=== PATIENT | female | born 1980 | race Caucasian/White ===

== ENCOUNTER 2018-03-20 22:56 | Inpatient (IN) | payer OTHER ==
[2018-03-20] MEDS ORDERED: Sodium Chloride 0.9% 10 ML Syringe FLUSH PRN (23:44)
[2018-03-21] MEDS ORDERED: Sodium Chloride 0.9% 10 ML Syringe FLUSH PRN (01:38)
[2018-03-21] MEDS ORDERED: Ondansetron 4 MG Tab.DIS PO PRN (01:38)
[2018-03-21] MEDS ORDERED: Lanolin 100% Cream 40 GM Tube TOP PRN (01:38)
[2018-03-21] MEDS ORDERED: fentaNYL 100 MCG/2 ML SDV IVPUSH PRN (01:38)
[2018-03-21] MEDS ORDERED: Acetaminophen 325 MG Tab PO PRN (01:38)
[2018-03-21] MEDS ORDERED: ePHEDrine 50 MG/ML SDV ONE (01:39)
[2018-03-21] MEDS ORDERED: Oxytocin 10 Units/1 ML SDV ONE (01:42)
[2018-03-21] MEDS ORDERED: Naloxone 0.4 MG/ML SDV ONE (01:43)
[2018-03-21] MEDS ORDERED: Lidocaine 1% 50 ML MDV ONE (01:43)
[2018-03-21] MEDS ORDERED: Acetaminophen 325 MG Tab, 50 Tab Bulk Bottle PO PRN (01:49)
[2018-03-21] MEDS ORDERED: Ibuprofen 200 MG Tab, 24 Tab Bulk Bottle PO PRN (01:49)
--- NOTE | 2018-03-21 01:54 | PCM.LDHP ---
L&D History of Present Illness - General Date of Service: 03/21/18 (Labor) Admit Problem/Dx: Patient Status Order with Admit Dx/Problem 03/21/18 01:39 Patient Status [ADT] Routine Patient Status [ADT] Routine Admission Diagnosis/Problem Admission Diagnosis/Problem Delivery procedure Source of Information: Patient History Limitations: Reports: No Limitations - History of Present Illness Introduction:: This 38 year old who is 39 6/7 presented with contractions and SROM at home abour 2230 this evening. Clear fluid. She is rocio regularly and contractions are becoming stronger. RN CE /posterior. Labs: GBS neg Rubella immune HIV neg ABO AB pos Timing/Duration: Reports: minutes: (2-3) Location, : Reports: Abdomen, Lower back Quality: Reports: Pressure Severity: Moderate Improves with: Reports: Movement Worsens with: Reports: None Associated Symptoms: Reports: vaginal fluid - Related Data Allergies/Adverse Reactions: Allergies Allergy/AdvReac Type Severity Reaction Status Date / Time No Known Allergies Allergy Verified 03/20/18 23:02 Home Medications: Home Meds Vits #93/Iron Fum/FA [ Formula Tablet] 1 tab PO DAILY 03/20/18 [History] Past Medical History - Past Health History Medical/Surgical History: Denies 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 Para: 1 LMP (Approximate): ([place] 03/22/18) Social & Family History - Tobacco Use Smoking Status *Q: Former Smoker Used Tobacco, but Quit: Yes Month/Year Tobacco Last Used: 2010 Second Hand Smoke Exposure: No - Caffeine Use Caffeine Use: Reports: None - Alcohol Use Days Per Week of Alcohol Use: 1 Number of Drinks Per Day: 1 Total Drinks Per Week: 1 - Recreational Drug Use Recreational Drug Use: No H&P Review of Systems - Review of Systems: Review Of Systems: See Below General: Reports: No Symptoms HEENT: Reports: No Symptoms Pulmonary: Reports: No Symptoms Cardiovascular: Reports: No Symptoms Gastrointestinal: Reports: No Symptoms Genitourinary: Reports: No Symptoms Musculoskeletal: Reports: No Symptoms Skin: Reports: No Symptoms Psychiatric: Reports: No Symptoms Neurological: Reports: No Symptoms Hematologic/Lymphatic: Reports: No Symptoms Immunologic: Reports: No Symptoms L&D Exam - Exam Exam: See Below - Vital Signs Vital Signs: Last Vital Signs Temp 97.3 F 03/21/18 01:00 Pulse 98 03/21/18 01:00 Resp 18 03/21/18 01:00 BP 115/80 03/21/18 01:00 Pulse Ox 99 03/21/18 01:00 Weight: 152 lb - OB Specific Contraction Duration (sec): 50-90 Contraction Frequency (min): 1-3 Contraction Intensity: Moderate to Strong Movement: Active Heart Tones: Present Heart Tones per Min: 130 Heart Rate (FHR) Variability: Moderate (6-25 bmp) Presentation: Vertex Estimated Weight: 8 pounds - Kwok Score Kwok Score Cervix Position: Posterior Kwok Score Consistency: Soft Kwok Score Effacement: >80% Kwok Score Dilation: 3-4 cm Kwok Score 's Station: -1 ,0 Kwok Score Total: 9 - Exam General: Alert, Oriented HEENT: PERRLA, Conjunctiva Clear, Mucosa Moist & [place], Posterior Pharynx Clear, Pupils Equal Neck: Supple, Trachea Midline Lungs: Clear to Auscultation, Normal Respiratory Effort Cardiovascular: Regular Rate, Regular Rhythm GI/Abdominal Exam: Normal Bowel Sounds, Soft Genitourinary: Normal external exam, Cervical dilitation, Enlarged uterus Back Exam: Normal Inspection, Full Range of Motion Extremities: Normal Inspection, No Pedal Edema, Normal Capillary Refill Neurological: Cranial Nerves Intact, Reflexes Equal Bilateral Psychiatric: Alert, Normal Affect, Normal Mood - Patient Data Lab Results Last 24 hrs: Laboratory Results - last 24 hr 03/20/18 03/20/18 03/20/18 Range/Units 23:14 23:14 23:50 WBC 12.6 H (4.5-11.0) K/uL RBC 4.18 (3.30-5.50) M/uL Hgb 13.4 (12.0-15.0) g/dL Hct 38.9 (36.0-48.0) % MCV 93 (80-98) fL MCH 32 H (27-31) pg MCHC 34 (32-36) % Plt Count 258 (150-400) K/uL Neut % (Auto) 71 H (36-66) % Lymph % (Auto) 17 L (24-44) % [place] % (Auto) 11 H (2-6) % Eos % (Auto) 1 L (2-4) % Baso % (Auto) 0 (0-1) % Urine Color Yellow Urine Appearance Turbid Urine pH 8.0 (4.5-8.0) Ur Specific [place] 1.015 (1.008-1.030) Urine Protein 30 H (NEGATIVE) mg/dL Urine Glucose (UA) Normal (NEGATIVE) mg/dL Urine Ketones 15 H (NEGATIVE) mg/dL Urine Occult Blood Large (NEGATIVE) Urine Nitrite Negative (NEGATIVE) Urine Bilirubin Negative (NEGATIVE) Urine Urobilinogen Normal (NORMAL) mg/dL Ur Leukocyte Esterase Small (NEGATIVE) Urine RBC 0-5 (0-5) Urine WBC 5-10 H (0-5) Ur Epithelial Cells Many Amorphous Sediment Not seen Urine Bacteria Many Urine Mucus Not seen Urine Opiates Screen Negative (NEGATIVE) Ur Oxycodone Screen Negative (NEGATIVE) Urine Methadone Screen Negative (NEGATIVE) Ur Propoxyphene Screen Negative (NEGATIVE) Ur Barbiturates Screen Negative (NEGATIVE) Ur Tricyclics Screen Negative (NEGATIVE) Ur Phencyclidine Scrn Negative (NEGATIVE) Ur Amphetamine Screen Negative (NEGATIVE) U Methamphetamines Scrn Negative (NEGATIVE) Urine MDMA Screen Negative (NEGATIVE) U Benzodiazepines Scrn Negative (NEGATIVE) U Cocaine Metab Screen Negative (NEGATIVE) U Marijuana (THC) Screen Negative (NEGATIVE) Result Diagrams: 03/20/18 23:50 - Problem List (1) SNOMED Code(s): 77275292 ICD Code: Z34.90 - ENCNTR FOR SUPRVSN OF NORMAL , UNSP, UNSP TRIMESTER Status: Acute Current Visit: Yes Qualifiers: Weeks of gestation: 39 weeks Qualified Code(s): Z3A.39 - 39 weeks gestation of (2) Active labor at term SNOMED Code(s): 82371523 ICD Code: BBX8299 - Status: Acute Current Visit: Yes Problem List Initiated/Reviewed/Updated: Yes Orders Last 24hrs: Active Orders 24 hr Category Date Time Status Patient Status [ADT] Routine ADT 03/21/18 01:39 Ordered Patient Status [ADT] Routine ADT 03/21/18 01:39 Ordered Antiembolic Devices [RC] .Routine Care 03/21/18 01:43 Ordered Communication Order [RC] ASDIRECTED Care 03/21/18 01:39 Ordered Heart Tones [RC] PER UNIT ROUTINE Care 03/21/18 01:39 Ordered May Shower [RC] ASDIRECTED Care 03/21/18 01:38 Ordered Notify Provider Vital Signs [RC] PRN Care 03/21/18 01:38 Ordered Notify Provider [RC] PRN Care 03/21/18 01:39 Ordered OB Check [OM.PC] Click to Edit Care 03/20/18 23:08 Ordered Peripheral IV Care [RC] . DIRECTED Care 03/20/18 23:44 Active Up ad Talia [RC] ASDIRECTED Care 03/21/18 01:38 Ordered VTE/DVT Education [RC] Click to Edit Care 03/21/18 01:43 Ordered Vital Signs [RC] PER UNIT ROUTINE Care 03/21/18 01:39 Ordered Vital Signs [RC] PFP Care 03/21/18 01:39 Ordered Clear Liquid Diet [DIET] Diet 03/21/18 Breakfast Ordered Regular Diet [DIET] Diet 03/21/18 Breakfast Ordered CBC WITH AUTO DIFF [HEME] AM Lab 03/21/18 05:11 Ordered Acetaminophen [Tylenol Bulk Bottle] Med 03/21/18 01:49 Ordered 325 mg PO Q4H PRN Acetaminophen [Tylenol] Med 03/21/18 01:38 Ordered 650 mg PO Q4H PRN Ibuprofen [Motrin Bulk Bottle] Med 03/21/18 01:49 Ordered 600 mg PO Q6H PRN Lanolin [Lansinoh HPA] Med 03/21/18 01:38 Ordered 1 gm TOP ASDIRECTED PRN Ondansetron [Zofran ODT] Med 03/21/18 01:38 Ordered 4 mg PO Q4H PRN Oxytocin/Normal Saline [Pitocin in NS 20 Units/1,000 ML Med 03/21/18 02:00 Ordered ] 1,000 ml IV TITRATE Sodium Chloride 0.9% [Saline Flush] Med 03/20/18 23:44 Active 10 ml FLUSH ASDIRECTED PRN Sodium Chloride 0.9% [Saline Flush] Med 03/21/18 01:38 Ordered 10 ml FLUSH ASDIRECTED PRN fentaNYL [Sublimaze] Med 03/21/18 01:38 Ordered 100 mcg IVPUSH Q1H PRN Assess Lochia [WOMSER] Per Unit Routine Oth 03/21/18 01:38 Ordered Assess Uterine Involution [WOMSER] Per Unit Routine Oth 03/21/18 01:38 Ordered DVT/VTE Prophylaxis Reflex [OM.PC] Routine Oth 03/21/18 01:38 Ordered Ice Therapy [OM.PC] Per Unit Routine Ot 03/21/18 01:45 Ordered Perineal Care [OM.PC] Per Unit Routine Oth 03/21/18 01:45 Ordered Peripheral IV Discontinue [OM.PC] Routine Oth 03/21/18 01:46 Ordered Peripheral IV Insertion Adult [OM.PC] Routine Ot 03/20/18 23:44 Ordered Saline Lock Insert [OM.PC] Routine Ot 03/21/18 01:39 Ordered Sitz Bath [OM.PC] Per Unit Routine Oth 03/21/18 01:45 Ordered Resuscitation Status Routine Resus Stat 03/21/18 01:38 Ordered Medication Orders Acetaminophen (Tylenol) 650 mg PO Q4H PRN PRN Reason: Pain (Mild 1-3) and fever Emollient Ointment (Lansinoh Hpa) 1 gm TOP ASDIRECTED PRN PRN Reason: Sore Nipples Fentanyl (Sublimaze) 100 mcg IVPUSH Q1H PRN PRN Reason: Pain (moderate 4-6) Oxytocin/Sodium Chloride (Pitocin In Ns 20 Units/1,000 Ml) 1,000 mls @ 6 mls/ hr IV TITRATE NOHEMY; Protocol Ondansetron HCl (Zofran Odt) 4 mg PO Q4H PRN PRN Reason: Nausea/Vomiting Sodium Chloride (Saline Flush) 10 ml FLUSH ASDIRECTED PRN PRN Reason: Keep Vein Open Sodium Chloride (Saline Flush) 10 ml FLUSH ASDIRECTED PRN PRN Reason: Keep Vein Open Assessment/Plan Comment:: 03/21/18 38 yr old g2g1 39 6/7, active labor with AROM, clear GBS negative Plan Epidural for pain management Anticipate vaginal delivery
[2018-03-21] MEDS ORDERED: ePHEDrine 50 MG/ML SDV IVPUSH ONE (01:59)
[2018-03-21] MEDS ORDERED: Lactated Ringers 1,000 ML IV ONE (01:59)
[2018-03-21] MEDS ORDERED: Ropivacaine HCl/PF 200 ML ONE (02:30)
[2018-03-21] MEDS ORDERED: ePHEDrine 50 MG/ML SDV IV PRN (03:11)
[2018-03-21] MEDS ORDERED: diphenhydrAMINE 50 MG/ML SDV IVPUSH PRN (03:11)
[2018-03-21] MEDS ORDERED: Naloxone 0.4 MG/ML SDV IVPUSH PRN (03:11)
[2018-03-21] MEDS ORDERED: Ropivacaine 100 ML EPIDUR SCH (03:11)
--- NOTE | 2018-03-21 03:36 | ANES ---
DATE OF SERVICE: 03/21/2018 INDICATIONS: This is a 38-year-old lady in Obstetrics, in active labor, term . I was asked by Ginny Trevino, certified nurse help desk rep to place a labor epidural. This is her 2nd child. She had an epidural with her 1st one. All questions were answered. Consent was signed. PROCEDURE IN DETAIL: She was placed in the sitting position. After a Betadine solution prep, the epidural was accomplished at what I believe is L4-5 x1 with a good feel. No paresthesia. No CSF. No blood. Lidocaine 1.5%, 5 mL with epinephrine 1 to 200:000 was injected through the epidural needle. The epidural catheter was then passed. She did have a paresthesia down her left leg. They quickly went away. It was passed up to the four ramona. The epidural needle was removed and the catheter was taped in place. She was then laid supine and was given a bolus of ropivacaine 0.2%, 15 mL over approximately 1 minute. She did feel a little paresthesia on the left, but it never belted and did not become uncomfortable. She was then hooked up to continuous infusion of ropivacaine 0.2% at infusion rate of 12 mL/h. After approximately 15 minutes, she was not feeling her contractions at all. Tolerated the procedure well. Paul Lee CRNA /[id number]
--- NOTE | 2018-03-21 05:20 | PCM.DEL ---
L & D Note - General Info Date of Service: 03/21/18 (delivery) Mother's Due Date: 03/22/18 - Delivery Note Labor: Spontaneous Delivery Outcome: Livebirth Infant Delivery Method: Spontaneous Vaginal Delivery-Single Infant Delivery Mode: Spontaneous Presentation: Vertex Nuchal Cord: Present Anesthesia Type: Epidural Amniotic Fluid Description: Clear Episiotomy Type: None Laceration: 1st Degree, Perineal Suture type: Vicryl Suture size: 3-0 Placenta: Intact, Expressed Cord: 3 Vessels Estimated Blood Loss: 200 Resuscitation Needed: No [place]: Bulb Syringe, Stimulated, Warmed, [place] Used, Warmer Used Provider: Ginny Trevino Score 1 min: 9 Score 5 min: 9 Second Stage Interventions: Reports: Encouragement Given, Pushing Effectively, Pushing, McRobert's Position Delivery Comments (Free Text/Narrative):: This 38 year old G2 now P2 who is 39 6/7 weeks gestation delivered at 0444 via in SUKI position a viable female . There was a very tight nuchal cord which was double clamped and cut and delivered thereafter. She was placed on mother's abdomen where she cried spontaneously. She was dried and stimulated and bulb suctioned. Apgars of 9, 9. Three vessel cord. The placenta was expressed manually intact. There was a first degree perineal tear which was repaired with 3-0 vicryl. EBL 200cc Mother and baby to post and nursery in stable condition. weight 8-4 beautiful delivery! first stage 8468-3652 Second stage 8781-6001 Third stage 1220-1037 - General Info Date of Service: 03/21/18 Admission Dx/Problem (Free Text): Patient Status Order with Admit Dx/Problem 03/21/18 01:39 Patient Status [ADT] Routine Patient Status [ADT] Routine Admission Diagnosis/Problem Admission Diagnosis/Problem Delivery procedure Functional Status: Reports: Pain Controlled - Review of Systems General: Reports: No Symptoms HEENT: Reports: No Symptoms Pulmonary: Reports: No Symptoms Cardiovascular: Reports: No Symptoms Gastrointestinal: Reports: No Symptoms Genitourinary: Reports: No Symptoms Musculoskeletal: Reports: No Symptoms Skin: Reports: No Symptoms Neurological: Reports: No Symptoms Psychiatric: Reports: No Symptoms - Patient Data Vitals - Most Recent: Last Vital Signs Temp 97.3 F 03/21/18 01:00 Pulse 74 03/21/18 03:03 Resp 18 03/21/18 03:03 BP 109/63 03/21/18 03:03 Pulse Ox 96 03/21/18 03:03 Weight - Most Recent: 152 lb Lab Results Last 24 Hours: Laboratory Results - last 24 hr 03/20/18 03/20/18 03/20/18 Range/Units 23:14 23:14 23:50 WBC 12.6 H (4.5-11.0) K/uL RBC 4.18 (3.30-5.50) M/uL Hgb 13.4 (12.0-15.0) g/dL Hct 38.9 (36.0-48.0) % MCV 93 (80-98) fL MCH 32 H (27-31) pg MCHC 34 (32-36) % Plt Count 258 (150-400) K/uL Neut % (Auto) 71 H (36-66) % Lymph % (Auto) 17 L (24-44) % [place] % (Auto) 11 H (2-6) % Eos % (Auto) 1 L (2-4) % Baso % (Auto) 0 (0-1) % Urine Color Yellow Urine Appearance Turbid Urine pH 8.0 (4.5-8.0) Ur Specific [place] 1.015 (1.008-1.030) Urine Protein 30 H (NEGATIVE) mg/dL Urine Glucose (UA) Normal (NEGATIVE) mg/dL Urine Ketones 15 H (NEGATIVE) mg/dL Urine Occult Blood Large (NEGATIVE) Urine Nitrite Negative (NEGATIVE) Urine Bilirubin Negative (NEGATIVE) Urine Urobilinogen Normal (NORMAL) mg/dL Ur Leukocyte Esterase Small (NEGATIVE) Urine RBC 0-5 (0-5) Urine WBC 5-10 H (0-5) Ur Epithelial Cells Many Amorphous Sediment Not seen Urine Bacteria Many Urine Mucus Not seen Urine Opiates Screen Negative (NEGATIVE) Ur Oxycodone Screen Negative (NEGATIVE) Urine Methadone Screen Negative (NEGATIVE) Ur Propoxyphene Screen Negative (NEGATIVE) Ur Barbiturates Screen Negative (NEGATIVE) Ur Tricyclics Screen Negative (NEGATIVE) Ur Phencyclidine Scrn Negative (NEGATIVE) Ur Amphetamine Screen Negative (NEGATIVE) U Methamphetamines Scrn Negative (NEGATIVE) Urine MDMA Screen Negative (NEGATIVE) U Benzodiazepines Scrn Negative (NEGATIVE) U Cocaine Metab Screen Negative (NEGATIVE) U Marijuana (THC) Screen Negative (NEGATIVE) Med Orders - Current: Current Medications Acetaminophen (Tylenol) 650 mg PO Q4H PRN PRN Reason: Pain (Mild 1-3) and fever Acetaminophen (Tylenol Bulk Bottle) 325 - 650 mg PO Q4H PRN PRN Reason: Pain Diphenhydramine HCl (Benadryl) 50 mg IVPUSH Q6H PRN PRN Reason: ITCHING Emollient Ointment (Lansinoh Hpa) 1 gm TOP ASDIRECTED PRN PRN Reason: Sore Nipples Ephedrine Sulfate (Ephedrine Sulfate) 5 - 10 mg IV ASDIRECTED PRN PRN Reason: Systolic BP less than 100 Fentanyl (Sublimaze) 100 mcg IVPUSH Q1H PRN PRN Reason: Pain (moderate 4-6) Oxytocin/Sodium Chloride (Pitocin In Ns 20 Units/1,000 Ml) 20 unit in 1,000 mls @ 6 mls/hr IV TITRATE NOHEMY; Protocol Ropivacaine (Naropin 0.2%) 100 mls @ 0 mls/hr EPIDUR ASDIRECTED NOHEMY; Protocol Ibuprofen (Motrin Bulk Bottle) 600 mg PO Q6H PRN PRN Reason: Pain Naloxone HCl (Narcan) 0.1 mg IVPUSH Q5M PRN PRN Reason: IF RESP RATE LESS THAN 6 Ondansetron HCl (Zofran Odt) 4 mg PO Q4H PRN PRN Reason: Nausea/Vomiting Sodium Chloride (Saline Flush) 10 ml FLUSH ASDIRECTED PRN PRN Reason: Keep Vein Open Sodium Chloride (Saline Flush) 10 ml FLUSH ASDIRECTED PRN PRN Reason: Keep Vein Open Discontinued Medications Ephedrine Sulfate (Ephedrine Sulfate) Confirm Administered Dose 50 mg .ROUTE .STK-MED ONE Stop: 03/21/18 01:40 Last Admin: 03/21/18 03:06 Dose: Not Given Ephedrine Sulfate (Ephedrine Sulfate) 5 mg IVPUSH ONETIME ONE Stop: 03/21/18 02:00 Oxytocin/Sodium Chloride (Pitocin In Ns 20 Units/1,000 Ml) Confirm Administered Dose 20 unit in 1,000 mls @ as directed .ROUTE .STK-MED ONE Stop: 03/21/18 01:44 Lactated Ringer's (Ringers, Lactated) 1,000 mls @ 999 mls/hr IV .BOLUS ONE Stop: 03/21/18 02:59 Ropivacaine (Naropin 0.2%) Confirm Administered Dose 200 mls @ as directed .ROUTE .STK-MED ONE Stop: 03/21/18 02:31 Lidocaine HCl (Xylocaine 1%) Confirm Administered Dose 100 ml .ROUTE .STK-MED ONE Stop: 03/21/18 01:44 Naloxone HCl (Narcan) Confirm Administered Dose 0.4 mg .ROUTE .STK-MED ONE Stop: 03/21/18 01:44 Oxytocin (Pitocin) Confirm Administered Dose 10 unit .ROUTE .STK-MED ONE Stop: 03/21/18 01:43 - Exam General: Alert, Oriented HEENT: Pupils Equal, Pupils Reactive, Mucous Membr. Moist/[place] Neck: Supple Lungs: Clear to Auscultation, Normal Respiratory Effort Cardiovascular: Regular Rate, Regular Rhythm GI/Abdominal Exam: Normal Bowel Sounds, Soft, Non-Tender (Female) Exam: Enlarged Uterus, Vaginal Bleeding, Vaginal Tears Back Exam: Normal Inspection, Full Range of Motion Extremities: Normal Inspection, Normal Range of Motion, Non-Tender, No Pedal Edema, Normal Capillary Refill Skin: Warm, Dry Wound/Incisions: Healing Well Neurological: No New Focal Deficit Psy/Mental Status: Alert, Normal Affect, Normal Mood - Problem List & Annotations (1) SNOMED Code(s): 03723282 Code(s): Z34.90 - ENCNTR FOR SUPRVSN OF NORMAL , UNSP, UNSP TRIMESTER Status: Acute Current Visit: Yes Qualifiers: Weeks of gestation: 39 weeks Qualified Code(s): Z3A.39 - 39 weeks gestation of (2) Active labor at term SNOMED Code(s): 45634987 Code(s): KGB7236 - Status: Acute Current Visit: Yes (3) Vaginal delivery SNOMED Code(s): 353502041 Code(s): O80 - ENCOUNTER FOR FULL-TERM UNCOMPLICATED DELIVERY Status: Acute Current Visit: Yes - Problem List Review Problem List Initiated/Reviewed/Updated: Yes - My Orders Last 24 Hours: My Active Orders 03/20/18 23:08 OB Check [OM.PC] Click To Edit 03/20/18 23:44 Peripheral IV Care [RC] . DIRECTED Sodium Chloride 0.9% [Saline Flush] 10 ml FLUSH ASDIRECTED PRN Peripheral IV Insertion Adult [OM.PC] Routine 03/21/18 01:38 May Shower [RC] ASDIRECTED Notify Provider Vital Signs [RC] PRN Up ad Talia [RC] ASDIRECTED Acetaminophen [Tylenol] 650 mg PO Q4H PRN Lanolin [Lansinoh HPA] 1 gm TOP ASDIRECTED PRN Ondansetron [Zofran ODT] 4 mg PO Q4H PRN Sodium Chloride 0.9% [Saline Flush] 10 ml FLUSH ASDIRECTED PRN fentaNYL [Sublimaze] 100 mcg IVPUSH Q1H PRN Assess Lochia [WOMSER] Per Unit Routine Assess Uterine Involution [WOMSER] Per Unit Routine DVT/VTE Prophylaxis Reflex [OM.PC] Routine Resuscitation Status Routine 03/21/18 01:39 Patient Status [ADT] Routine Patient Status [ADT] Routine Communication Order [RC] ASDIRECTED Notify Provider [RC] PRN Vital Signs [RC] PFP Saline Lock Insert [OM.PC] Routine 03/21/18 01:43 Antiembolic Devices [RC] .Routine VTE/DVT Education [RC] Click to Edit 03/21/18 01:45 Ice Therapy [OM.PC] Per Unit Routine Perineal Care [OM.PC] Per Unit Routine Sitz Bath [OM.PC] Per Unit Routine 03/21/18 01:46 Peripheral IV Discontinue [OM.PC] Routine 03/21/18 01:49 Acetaminophen [Tylenol Bulk Bottle] 325 - 650 mg PO Q4H PRN Ibuprofen [Motrin Bulk Bottle] 600 mg PO Q6H PRN 03/21/18 01:59 Local Anesthetic Infusion Pump [RC] ASDIRECTED PCEA Epidural [RC] ASDIRECTED Epidural Catheter Management [OM.PC] Urgent 03/21/18 02:00 Oxytocin/Normal Saline [Pitocin in NS 20 Units/1,000 ML] 20 unit in 1,000 ml IV TITRATE 03/21/18 05:11 CBC WITH AUTO DIFF [HEME] AM 03/21/18 Breakfast Clear Liquid Diet [DIET] Regular Diet [DIET] - Assessment Assessment:: 03/21/18 38 yr old 39 6/7 weeks, without complications small first degree perineal tear, repaired Female , no problems. bottle feeding - Plan Plan:: 03/21/18 38 yr old g2g1 39 6/, active labor with AROM, clear GBS negative Plan Epidural for pain management Anticipate vaginal delivery 03/21/18 24-48 hour stay monitor for bleeding
[2018-03-21] MEDS ORDERED: Benzocaine 20% Top Spray 56 GM Bottle TOP PRN (07:06)
[2018-03-22] MEDS ORDERED: Docusate Sodium 100 MG Cap PO PRN (02:04)
--- NOTE | 2018-03-22 08:20 | PCM.PNPP ---
- General Info Date of Service: 03/22/18 (PPD 1) Admission Dx/Problem (Free Text): Patient Status Order with Admit Dx/Problem 03/21/18 01:39 Patient Status [ADT] Routine Patient Status [ADT] Routine Admission Diagnosis/Problem Admission Diagnosis/Problem Delivery procedure Functional Status: Reports: Pain Controlled - Review of Systems General: Reports: No Symptoms HEENT: Reports: No Symptoms Pulmonary: Reports: No Symptoms Cardiovascular: Reports: No Symptoms Gastrointestinal: Reports: No Symptoms Genitourinary: Reports: No Symptoms Musculoskeletal: Reports: No Symptoms Skin: Reports: No Symptoms Neurological: Reports: No Symptoms Psychiatric: Reports: No Symptoms - General Info Date of Service: 03/22/18 - Patient Data Vital Signs - Most Recent: Last Vital Signs Temp 97 F 03/22/18 05:00 Pulse 73 03/22/18 05:00 Resp 16 03/22/18 05:00 BP 101/68 03/22/18 05:00 Pulse Ox 96 03/22/18 05:00 Weight - Most Recent: 152 lb I&O - Last 24 Hours: Intake & Output 03/21/18 03/22/18 03/22/18 22:59 06:59 14:59 Intake Total 500 Balance 500 Med Orders - Current: Current Medications Acetaminophen (Tylenol) 650 mg PO Q4H PRN PRN Reason: Pain (Mild 1-3) and fever Last Admin: 03/21/18 07:20 Dose: 650 mg Acetaminophen (Tylenol Bulk Bottle) 325 - 650 mg PO Q4H PRN PRN Reason: Pain Benzocaine ([id number] 20% [place]) 1 gm TOP ASDIRECTED PRN PRN Reason: Pain (mild 1-3) Last Admin: 03/21/18 11:15 Dose: 1 applic Diphenhydramine HCl (Benadryl) 50 mg IVPUSH Q6H PRN PRN Reason: ITCHING Docusate Sodium (Colace) 100 mg PO BID PRN PRN Reason: Constipation Last Admin: 03/22/18 05:19 Dose: 100 mg Emollient Ointment (Lansinoh Hpa) 1 gm TOP ASDIRECTED PRN PRN Reason: Sore Nipples Fentanyl (Sublimaze) 100 mcg IVPUSH Q1H PRN PRN Reason: Pain (moderate 4-6) Oxytocin/Sodium Chloride (Pitocin In Ns 20 Units/1,000 Ml) 20 unit in 1,000 mls @ 6 mls/hr IV TITRATE NOHEMY; Protocol Last Admin: 03/21/18 04:45 Dose: 150 munits/min, 450 mls/hr Ibuprofen (Motrin Bulk Bottle) 600 mg PO Q6H PRN PRN Reason: Pain Last Admin: 03/21/18 07:19 Dose: 600 mg Ondansetron HCl (Zofran Odt) 4 mg PO Q4H PRN PRN Reason: Nausea/Vomiting Sodium Chloride (Saline Flush) 10 ml FLUSH ASDIRECTED PRN PRN Reason: Keep Vein Open Discontinued Medications Ephedrine Sulfate (Ephedrine Sulfate) Confirm Administered Dose 50 mg .ROUTE .STK-MED ONE Stop: 03/21/18 01:40 Last Admin: 03/21/18 03:06 Dose: Not Given Ephedrine Sulfate (Ephedrine Sulfate) 5 mg IVPUSH ONETIME ONE Stop: 03/21/18 02:00 Last Admin: 03/21/18 06:31 Dose: Not Given Ephedrine Sulfate (Ephedrine Sulfate) 5 - 10 mg IV ASDIRECTED PRN PRN Reason: Systolic BP less than 100 Oxytocin/Sodium Chloride (Pitocin In Ns 20 Units/1,000 Ml) Confirm Administered Dose 20 unit in 1,000 mls @ as directed .ROUTE .STK-MED ONE Stop: 03/21/18 01:44 Last Admin: 03/21/18 03:45 Dose: 6 mls/hr Lactated Ringer's (Ringers, Lactated) 1,000 mls @ 999 mls/hr IV .BOLUS ONE Stop: 03/21/18 02:59 Last Admin: 03/21/18 01:00 Dose: 999 mls/hr Ropivacaine (Naropin 0.2%) Confirm Administered Dose 200 mls @ as directed .ROUTE .STK-MED ONE Stop: 03/21/18 02:31 Ropivacaine (Naropin 0.2%) 100 mls @ 0 mls/hr EPIDUR ASDIRECTED NOHEMY; Protocol Lidocaine HCl (Xylocaine 1%) Confirm Administered Dose 100 ml .ROUTE .STK-MED ONE Stop: 03/21/18 01:44 Last Admin: 03/21/18 06:31 Dose: Not Given Naloxone HCl (Narcan) Confirm Administered Dose 0.4 mg .ROUTE .STK-MED ONE Stop: 03/21/18 01:44 Last Admin: 03/21/18 06:31 Dose: Not Given Naloxone HCl (Narcan) 0.1 mg IVPUSH Q5M PRN PRN Reason: IF RESP RATE LESS THAN 6 Oxytocin (Pitocin) Confirm Administered Dose 10 unit .ROUTE .STK-MED ONE Stop: 03/21/18 01:43 Last Admin: 03/21/18 06:32 Dose: Not Given Sodium Chloride (Saline Flush) 10 ml FLUSH ASDIRECTED PRN PRN Reason: Keep Vein Open - Interaction Infant Disposition, : in Room with Family Infant Interaction: Holding Infant Feeding: Bottle Fed Infant Support Person: - Recovery Exam Fundal Tone: Firm Fundal Level: 2 Fingerbreadths Below Umbilicus Fundal Placement: Midline Lochia Amount: Moderate Lochia Color: Rubra/Red Perineum Description: Intact, Minimal Bruising/Swelling Episiotomy/Laceration: Approximated Urinary Elimination: Voided Other Urinary Elimination, : voided - Exam General: Alert, Oriented HEENT: Pupils Equal Neck: Supple Lungs: Clear to Auscultation, Normal Respiratory Effort Cardiovascular: Regular Rate, Regular Rhythm GI/Abdominal Exam: Normal Bowel Sounds, Soft, Non-Tender, No Organomegaly, No Distention, No Abnormal Bruit, No Mass, Pelvis Stable Extremities: Normal Inspection, Normal Range of Motion, Non-Tender, No Pedal Edema, Normal Capillary Refill Skin: Warm, Dry, Intact Wound/Incisions: Healing Well Neurological: No New Focal Deficit Psy/Mental Status: Alert, Normal Affect, Normal Mood - Problem List & Annotations (1) SNOMED Code(s): 28756827 Code(s): Z34.90 - ENCNTR FOR SUPRVSN OF NORMAL , UNSP, UNSP TRIMESTER Status: Acute Current Visit: Yes Qualifiers: Weeks of gestation: 39 weeks Qualified Code(s): Z3A.39 - 39 weeks gestation of (2) Active labor at term SNOMED Code(s): 34863805 Code(s): DTE9368 - Status: Acute Current Visit: Yes (3) Vaginal delivery SNOMED Code(s): 364474152 Code(s): O80 - ENCOUNTER FOR FULL-TERM UNCOMPLICATED DELIVERY Status: Acute Current Visit: Yes - Problem List Review Problem List Initiated/Reviewed/Updated: Yes - My Orders Last 24 Hours: My Active Orders 03/21/18 Breakfast Clear Liquid Diet [DIET] Regular Diet [DIET] 03/22/18 02:04 Docusate Sodium [Colace] 100 mg PO BID PRN 03/22/18 08:12 CBC W/O DIFF,HEMOGRAM [HEME] Routine - Assessment Assessment:: 03/21/18 38 yr old 39 6/7 weeks, without complications small first degree perineal tear, repaired Female , no problems. bottle feeding 03/22/18 Doing well this morning CBC not done yet. Mood happy Voiding and flow is light. Repair not tender - Plan Plan:: 03/21/18 38 yr old g2g1 39 6/7, active labor with AROM, clear GBS negative Plan Epidural for pain management Anticipate vaginal delivery 03/21/18 24-48 hour stay monitor for bleeding 03/22/18 Home today see me in 6 weeks for a post visit
[2018-03-22 10:56] VITALS: BP 115/76
== END 2018-03-22 13:15 | disposition home or self-care (01) | DRG 775 ==
LOC: JP.OBCHECK 22:56 → JP.OB 03-21 00:15 → OBSVTOIN 03-21 04:44 → JP.MS 03-21 05:00
PROVIDERS: ADMIT Nurse Practitioner Family; ATTEND Nurse Practitioner Family
PROC: 10E0XZZ Delivery of Products of Conception, External Approach (ICD-10-PCS; principal; 2018-03-21)
PROC: 0HQ9XZZ Repair Perineum Skin, External Approach (ICD-10-PCS; 2018-03-21)
DX: O42.02 Full-term premature rupture of membranes, onset of labor within 24 hours of rupture (principal); O70.0 First degree perineal laceration during delivery; O69.1XX0 Labor and delivery complicated by cord around neck, with compression, not applicable or unspecified; Z3A.39 39 weeks gestation of pregnancy; Z37.0 Single live birth
CPT/HCPCS: 36415; 51702; 80305; 81001; 85025; 85027; 99211; A9270-GY; J2590; J2795; J7120